=== PATIENT | female | born 1995 | race African-American/Black ===

== ENCOUNTER 2018-09-06 17:01 | Inpatient (IN) ==
[2018-09-06] MEDS ORDERED: PANTOPRAZOLE 40 MG VIAL IV STA (18:16)
[2018-09-06] MEDS ORDERED: ALUM/MAG/SIMETH/LIDO VISC 1:1 30 ML BOTTLE PO STA (18:16)
[2018-09-06] MEDS ORDERED: ONDANSETRON 4 MG/2 ML VIAL IV STA (18:16)
[2018-09-06] MEDS ORDERED: KETOROLAC 30 MG/1 ML VIAL IV STA (18:16)
[2018-09-06 19:11] LABS: Basophils % 0.3 % (0.0-0.8); Eosinophils # 0.1 10*3/uL (0.0-0.87); Eosinophils % 0.7 % (0.00-10.9); Hematocrit 40.1 VOL% (35.7-47.0); Hemoglobin 13.5 GM/DL (12.0-16.0); Immature Granulocytes % 0.4 %; Immature Granulocytes Absolute 0.03 #; Lymphocytes # 1.3 10*3/uL (1.4-4.0); Lymphocytes % 17.2 % (21.3-54.2); Mean Corpuscular HGB Conc 33.7 GM/DL (32-36); Mean Corpuscular Hemoglobin 32 PG (27-34); Mean Corpuscular Volume 95.2 FL (87-102); Monocytes # 0.6 10*3/uL (0.11-0.8); Monocytes % 7.3 % (1.7-12.7); Neutrophils # 5.6 10*3/uL (1.4-7.4); Neutrophils % 74.1 % (38.7-73.9); Platelet Count 217 T/CUMM (130-400); Red Blood Count 4.21 MC/CUMM (3.8-5.5); Red Cell Distribution Width 12.3 % (9.3-17.3); White Blood Count 7.6 T/CUMM (4-12)
[2018-09-06 19:36] LABS: Lactic Acid 0.9 MMOL/L (0.4-2.0)
[2018-09-06 19:37] LABS: Albumin 3.8 G/DL (3.4-5.0); Bilirubin,Total 4.1 MG/DL (0.2-1.0); Calcium 8.9 MG/DL (8.5-10.1); Osmolality,Calculated 273.5 MOS/KG (273-304); Potassium 3.5 MMOL/L (3.5-5.1); Total Protein 8.5 G/DL (6.4-8.3)
[2018-09-06 20:09] LABS: Apearance,Urine CLEAR (Clear); Bilirubin,Urine Negative (Negative); Blood, Urine Negative (Negative); Glucose,Urine (UA) Negative (Negative); Ketones,Urine 5 mg/dL (Negative); Mucus,Urine Occasional /LPF (Occasional); Nitrite,Urine Negative (Negative); Protein,Urine Negative; RBC,Urine 1 /HPF (0-4); Squamous Epithelial Cell,Urine Occasional /HPF (0-10); Urine Color Amber (Yellow); Urine Specific Gravity 1.009 (1.001-1.035)
[2018-09-06] MEDS ORDERED: KETOROLAC 15 MG/1 ML VIAL IV PRN (21:04)
[2018-09-06] MEDS ORDERED: BISACODYL 5 MG TABLET PO PRN (21:04)
[2018-09-06] MEDS ORDERED: ALUMINUM/MAGNES/SIMETH MAX STR 30 ML UDCUP PO PRN (21:04)
[2018-09-06] MEDS ORDERED: IBUPROFEN 400 MG TABLET PO PRN (21:04)
[2018-09-06] MEDS: PIPERACILLIN/TAZOBACTAM 3,375 MG in SODIUM CHLORIDE 0.9% 100 ML IV SCH (21:46)
[2018-09-06 22:27] LABS: Hepatitis A Ab IgM Quant 0.13 Index; Hepatitis A Ab IgM Result Negative (Negative); Hepatitis B Core IgM Quant < 0.05 Index; Hepatitis B Core IgM Result Negative (Negative); Hepatitis B Surface Ag Quant < 0.10 Index; Hepatitis B Surface Ag Result Negative (Negative); Hepatitis C Virus Ab Quant 0.14 Index; Hepatitis C Virus Ab Result Negative (Negative)
[2018-09-06] MEDS: LACTATED RINGERS 1,000 ML IV SCH (22:29)
[2018-09-07 05:03] LABS: Basophils % 0.2 % (0.0-0.8); Eosinophils # 0.1 10*3/uL (0.0-0.87); Eosinophils % 1.4 % (0.00-10.9); Hematocrit 38.1 VOL% (35.7-47.0); Hemoglobin 12.6 GM/DL (12.0-16.0); Immature Granulocytes % 0.2 %; Immature Granulocytes Absolute 0.01 #; Lymphocytes # 1.3 10*3/uL (1.4-4.0); Lymphocytes % 29.8 % (21.3-54.2); Mean Corpuscular HGB Conc 33.1 GM/DL (32-36); Mean Corpuscular Hemoglobin 32 PG (27-34); Mean Corpuscular Volume 96.7 FL (87-102); Mean Platelet Volume 11.6 FL (9.6-12.0); Monocytes # 0.6 10*3/uL (0.11-0.8); Monocytes % 12.4 % (1.7-12.7); Neutrophils # 2.5 10*3/uL (1.4-7.4); Platelet Count 184 T/CUMM (130-400); Red Blood Count 3.94 MC/CUMM (3.8-5.5); Red Cell Distribution Width 12.5 % (9.3-17.3); White Blood Count 4.4 T/CUMM (4-12)
[2018-09-07 05:40] LABS: Bilirubin,Total 3.9 MG/DL (0.2-1.0); Calcium 8.1 MG/DL (8.5-10.1); Osmolality,Calculated 276.4 MOS/KG (273-304); Potassium 3.3 MMOL/L (3.5-5.1); Total Protein 7.3 G/DL (6.4-8.3)
[2018-09-07] MEDS: PIPERACILLIN/TAZOBACTAM 3,375 MG in SODIUM CHLORIDE 0.9% 100 ML IV SCH ×3 (06:11→21:33)
[2018-09-07] MEDS: LACTATED RINGERS 1,000 ML IV SCH ×3 (06:31→19:00)
[2018-09-07] MEDS: DOCUSATE SODIUM 100 MG CAPSULE PO SCH ×2 (14:45→21:33)
[2018-09-07] MEDS: PANTOPRAZOLE 40 MG TABLET PO SCH (14:45)
[2018-09-07] MEDS: ONDANSETRON 4 MG/2 ML VIAL IV PRN (16:17)
[2018-09-08] MEDS: LACTATED RINGERS 1,000 ML IV SCH ×3 (06:16→21:57)
[2018-09-08] MEDS: PIPERACILLIN/TAZOBACTAM 3,375 MG in SODIUM CHLORIDE 0.9% 100 ML IV SCH ×3 (06:17→21:57)
[2018-09-08 07:11] LABS: Basophils % 0.4 % (0.0-0.8); Eosinophils # 0.1 10*3/uL (0.0-0.87); Eosinophils % 1.7 % (0.00-10.9); Hematocrit 37.9 VOL% (35.7-47.0); Hemoglobin 12.2 GM/DL (12.0-16.0); Immature Granulocytes % 0.2 %; Immature Granulocytes Absolute 0.01 #; Lymphocytes # 1.7 10*3/uL (1.4-4.0); Lymphocytes % 37.8 % (21.3-54.2); Mean Corpuscular HGB Conc 32.2 GM/DL (32-36); Mean Corpuscular Hemoglobin 31 PG (27-34); Mean Corpuscular Volume 97.7 FL (87-102); Mean Platelet Volume 11.8 FL (9.6-12.0); Monocytes # 0.5 10*3/uL (0.11-0.8); Monocytes % 10.2 % (1.7-12.7); Neutrophils # 2.3 10*3/uL (1.4-7.4); Neutrophils % 49.7 % (38.7-73.9); PT Patient Result 10.8 SECS; Platelet Count 191 T/CUMM (130-400); Red Blood Count 3.88 MC/CUMM (3.8-5.5); Red Cell Distribution Width 12.4 % (9.3-17.3); White Blood Count 4.6 T/CUMM (4-12)
[2018-09-08] MEDS ORDERED: ROCURONIUM 100 MG/10 ML VIAL IV ONE (09:00)
[2018-09-08] MEDS ORDERED: LIDOCAINE 100 MG/5 ML SYRINGE ONE (09:00)
[2018-09-08] MEDS ORDERED: GLYCOPYRROLATE 0.4 MG/2 ML VIAL ONE (09:00)
[2018-09-08] MEDS ORDERED: NEOSTIGMINE 10 MG/10 ML VIAL ONE ×2 (09:00→13:34)
[2018-09-08] MEDS ORDERED: SUCCINYLCHOLINE 200 MG/10 ML VIAL ONE (09:00)
[2018-09-08] MEDS ORDERED: ONDANSETRON 4 MG/2 ML VIAL ONE ×2 (09:00→12:17)
[2018-09-08] MEDS: DOCUSATE SODIUM 100 MG CAPSULE PO SCH ×2 (09:00→21:58)
[2018-09-08] MEDS ORDERED: PROPOFOL 200 MG/20 ML VIAL IV ONE (09:00)
[2018-09-08] MEDS ORDERED: fentaNYL 100 MCG/2 ML VIAL ONE (11:07)
[2018-09-08] MEDS ORDERED: INDOMETHACIN SUPP 50 MG SUPP RECTAL ONE (11:19)
[2018-09-08] MEDS: ONDANSETRON 4 MG/2 ML VIAL IV PRN ×2 (12:18→19:27)
[2018-09-08] MEDS ORDERED: SEVOFLURANE 1 UNIT/15 MINUTE INH ONE (13:34)
[2018-09-08 14:46] LABS: Albumin 3.2 G/DL (3.4-5.0); Calcium 8.5 MG/DL (8.5-10.1); Osmolality,Calculated 271.7 MOS/KG (273-304); Potassium 3.5 MMOL/L (3.5-5.1); Total Protein 7.8 G/DL (6.4-8.3)
[2018-09-08] MEDS: PANTOPRAZOLE 40 MG TABLET PO SCH (16:12)
[2018-09-09] MEDS: PIPERACILLIN/TAZOBACTAM 3,375 MG in SODIUM CHLORIDE 0.9% 100 ML IV SCH ×3 (05:37→23:30)
[2018-09-09 07:42] LABS: Bilirubin,Total 0.9 MG/DL (0.2-1.0); Calcium 8.8 MG/DL (8.5-10.1); Osmolality,Calculated 278.1 MOS/KG (273-304); Total Protein 7.3 G/DL (6.4-8.3)
[2018-09-09] MEDS: DOCUSATE SODIUM 100 MG CAPSULE PO SCH ×2 (09:00→21:30)
[2018-09-09] MEDS: PANTOPRAZOLE 40 MG TABLET PO SCH (09:00)
[2018-09-09] MEDS: ENOXAPARIN 40 MG/0.4 ML SYRINGE SUBCUT SCH (12:00)
[2018-09-09] MEDS ORDERED: LIDOCAINE 1%/EPI INJ 20 ML VIAL ONE (12:23)
[2018-09-09] MEDS ORDERED: TISSUE ADHESIVE 1 EACH APPLICATOR TOP ONE (12:23)
[2018-09-09] MEDS ORDERED: BUPIVACAINE MPF 0.25% /EPI 30 ML VIAL ONE (12:23)
[2018-09-09] MEDS ORDERED: SCOPOLAMINE 1.5 MG PATCH TRANSDERM ONE ×2 (13:03→13:09)
[2018-09-09] MEDS ORDERED: MIDAZOLAM 2 MG/2 ML VIAL ONE (14:05)
[2018-09-09] MEDS ORDERED: fentaNYL 100 MCG/2 ML VIAL ONE (14:06)
[2018-09-09] MEDS ORDERED: DEXAMETHASONE 10 MG/1 ML VIAL ONE (14:22)
[2018-09-09] MEDS ORDERED: PROPOFOL 200 MG/20 ML VIAL IV ONE (14:22)
[2018-09-09] MEDS ORDERED: SEVOFLURANE 1 UNIT/15 MINUTE INH ONE (14:22)
[2018-09-09] MEDS ORDERED: ONDANSETRON 4 MG/2 ML VIAL ONE ×2 (14:23→14:27)
[2018-09-09] MEDS ORDERED: ROCURONIUM 100 MG/10 ML VIAL IV ONE (14:23)
[2018-09-09] MEDS ORDERED: GLYCOPYRROLATE 0.4 MG/2 ML VIAL ONE (14:23)
[2018-09-09] MEDS ORDERED: NEOSTIGMINE 10 MG/10 ML VIAL ONE (14:23)
[2018-09-09] MEDS ORDERED: HYDROmorphone 2 MG/1 ML VIAL ONE (14:27)
[2018-09-09] MEDS: HYDROmorphone 2 MG/1 ML VIAL IV PRN ×2 (14:30→14:40)
[2018-09-09] MEDS ORDERED: ONDANSETRON 4 MG/2 ML VIAL IV PRN (14:43)
[2018-09-09] MEDS: ONDANSETRON 4 MG/2 ML VIAL IV PRN (16:40)
[2018-09-09] MEDS: MORPHINE 4 MG/1 ML VIAL IV PRN ×2 (19:19→23:47)
[2018-09-09] MEDS: LACTATED RINGERS 1,000 ML IV SCH (21:28)
[2018-09-10] MEDS: LACTATED RINGERS 1,000 ML IV SCH ×3 (01:48→15:01)
[2018-09-10] MEDS: PIPERACILLIN/TAZOBACTAM 3,375 MG in SODIUM CHLORIDE 0.9% 100 ML IV SCH ×2 (06:21→15:02)
[2018-09-10] MEDS: MORPHINE 4 MG/1 ML VIAL IV PRN (06:27)
[2018-09-10] MEDS: DOCUSATE SODIUM 100 MG CAPSULE PO SCH (09:18)
[2018-09-10] MEDS: PANTOPRAZOLE 40 MG TABLET PO SCH (09:18)
[2018-09-10 10:03] LABS: Albumin 3.4 G/DL (3.4-5.0); Bilirubin,Direct 0.44 MG/DL (0.0-0.20); Bilirubin,Indirect 0.3 MG/DL (0.0-1.0); Bilirubin,Total 0.7 MG/DL (0.2-1.0); Total Protein 7.5 G/DL (6.4-8.3)
[2018-09-10 12:40] VITALS: BP 108/60
[2018-09-10] MEDS: ENOXAPARIN 40 MG/0.4 ML SYRINGE SUBCUT SCH (15:01)
== END 2018-09-10 14:00 | disposition home or self-care (01) | DRG 419 ==
LOC: N.ED 17:01 → N.EDINP 21:04 → N.3E 21:39
PROVIDERS: ADMIT Surgery; ATTEND Surgery
PROC: LAPCHOL (2018-09-09 12:05)

== ENCOUNTER 2019-11-25 17:59 | Inpatient (IN) ==
[2019-11-25] MEDS ORDERED: LACTATED RINGERS 1,000 ML IV SCH (18:30)
[2019-11-25 18:56] LABS: Basophils % 0.2 % (0.0-0.8); Eosinophils # 0.1 10*3/uL (0.0-0.87); Hematocrit 33.3 VOL% (35.7-47.0); Hemoglobin 11.2 GM/DL (12.0-16.0); Immature Granulocytes % 0.5 %; Immature Granulocytes Absolute 0.05 #; Lymphocytes # 2.2 10*3/uL (1.4-4.0); Lymphocytes % 22.2 % (21.3-54.2); Mean Corpuscular HGB Conc 33.6 GM/DL (32-36); Mean Corpuscular Volume 91.2 FL (87-102); Mean Platelet Volume 12.3 FL (9.6-12.0); Monocytes % 7.6 % (1.7-12.7); Neutrophils % 68.5 % (38.7-73.9); Platelet Count 186 T/CUMM (130-400); Red Blood Count 3.65 MC/CUMM (3.8-5.5); Red Cell Distribution Width 13.5 % (9.3-17.3); White Blood Count 9.8 T/CUMM (4-12)
[2019-11-25 19:03] LABS: INR 0.9; PT Patient Result 9.3 SECS (9.6-12.2); Partial Thromboplastin Time 27.8 SECS (20.8-36.0)
[2019-11-25 19:26] LABS: Alanine Aminotransferase 31 U/L (13-56); Albumin 2.5 G/DL (3.4-5.0); Alkaline Phosphatase 187 U/L (45-117); Aspartate Amino Transferase 29 U/L (0-37); Bilirubin,Total < 0.39 MG/DL (0.2-1.0); Blood Urea Nitrogen 10 MG/DL (7-18); Calcium 9.1 MG/DL (8.5-10.1); Estimated Glom Filtration Rate 139 ML/MIN; Glucose 79 MG/DL (74-106); Osmolality,Calculated 270.8 MOS/KG (273-304); Total Protein 7.5 G/DL (6.4-8.3); Uric Acid 5.5 MG/DL (2.6-6.0)
[2019-11-25] MEDS ORDERED: PENICILLIN G POTASSIUM INJ 6,000,000 UNIT in SODIUM CHLORIDE 0.9% 100 ML IV ONE (20:00)
[2019-11-26] MEDS: PENICILLIN G POTASSIUM INJ 3,000,000 UNIT in SODIUM CHLORIDE 0.9% 100 ML IV SCH ×4 (00:15→12:22)
[2019-11-26] MEDS ORDERED: OXYTOCIN/LR 20 UNIT/1,000 ML BAG IV SCH (12:00)
[2019-11-26] MEDS ORDERED: ceFAZolin 3,000 MG in SYRINGE 15 EACH IV ONE ×2 (14:59→15:30)
[2019-11-26] MEDS ORDERED: CITRIC ACID/SODIUM CITRATE 30 ML UDCUP PO ONE (14:59)
[2019-11-26] MEDS ORDERED: FAMOTIDINE 20 MG/2 ML VIAL IV ONE (14:59)
[2019-11-26] MEDS ORDERED: LACTATED RINGERS 1,000 ML IV SCH (15:00)
[2019-11-26] MEDS ORDERED: OXYTOCIN/LR 20 UNIT/1,000 ML BAG IV ONE ×2 (15:18→19:00)
[2019-11-26] MEDS ORDERED: TRANEXAMIC ACID 1,000 MG/10 ML VIAL ONE (15:18)
[2019-11-26] MEDS ORDERED: miSOPROStoL 200 MCG TABLET ONE (15:18)
[2019-11-26] MEDS ORDERED: METHYLERGONOVINE 0.2 MG/1 ML AMP ONE (15:18)
[2019-11-26] MEDS ORDERED: CARBOPROST TROMETHAMINE 250 MCG/ML AMP IM ONE (15:19)
[2019-11-26] MEDS ORDERED: ROPIVACAINE 0.5% 30 ML VIAL ONE (15:23)
[2019-11-26] MEDS: ONDANSETRON 4 MG/2 ML VIAL IV PRN ×2 (15:32→21:00)
[2019-11-26] MEDS ORDERED: OXYTOCIN 10 UNIT/ML VIAL ONE (16:37)
[2019-11-26 17:14] LABS: Apearance,Urine CLEAR (Clear); Bilirubin,Urine Negative (Negative); Blood, Urine Negative (Negative); Glucose,Urine (UA) Negative (Negative); Ketones,Urine 80 mg/dL (Negative); Mucus,Urine Occasional /LPF (Occasional); Nitrite,Urine Negative (Negative); Protein,Urine 100 MG/DL; RBC,Urine 1 /HPF (0-4); Squamous Epithelial Cell,Urine Occasional /HPF (0-10); Urine Color Yellow (Yellow); Urine Specific Gravity 1.036 (1.001-1.035); Urine Urobilinogen < 2.0 EU/DL (0.2-1.0); WBC,Urine 1 /HPF (0-6)
[2019-11-26] MEDS ORDERED: fentaNYL 100 MCG/2 ML VIAL ONE (17:25)
[2019-11-26] MEDS ORDERED: PHENYLEPHRINE 1 MG/10 ML SYRINGE IV ONE (17:25)
[2019-11-26] MEDS ORDERED: MIDAZOLAM 2 MG/2 ML VIAL ONE (17:26)
[2019-11-26] MEDS ORDERED: BUPIVACAINE SPINAL 0.75% 2 ML AMP SPINAL ONE (17:26)
[2019-11-26] MEDS ORDERED: MORPHINE 10 MG/10 ML VIAL ONE (17:26)
[2019-11-26] MEDS: KETOROLAC 30 MG/1 ML VIAL IV SCH ×2 (19:45→20:11)
[2019-11-26] MEDS ORDERED: RHO(D) IMMUNE GLOBULIN 300 MCG SYRINGE IM ONE (20:26)
[2019-11-26] MEDS ORDERED: ACETAMINOPHEN 325 MG TABLET PO PRN (20:26)
[2019-11-26] MEDS ORDERED: ONDANSETRON 4 MG/2 ML VIAL IV PRN (20:26)
[2019-11-26] MEDS: DOCUSATE SODIUM 100 MG CAPSULE PO SCH (21:13)
[2019-11-27] MEDS: KETOROLAC 30 MG/1 ML VIAL IV SCH ×3 (01:24→14:10)
[2019-11-27 05:54] LABS: Basophils % 0.2 % (0.0-0.8); Eosinophils % 0.2 % (0.00-10.9); Hematocrit 27.9 VOL% (35.7-47.0); Hemoglobin 9.2 GM/DL (12.0-16.0); Immature Granulocytes % 0.7 %; Immature Granulocytes Absolute 0.08 #; Lymphocytes # 1.3 10*3/uL (1.4-4.0); Lymphocytes % 10.8 % (21.3-54.2); Mean Corpuscular Volume 92.4 FL (87-102); Mean Platelet Volume 13.1 FL (9.6-12.0); Monocytes % 6.4 % (1.7-12.7); Neutrophils % 81.7 % (38.7-73.9); Platelet Count 165 T/CUMM (130-400); Red Blood Count 3.02 MC/CUMM (3.8-5.5); Red Cell Distribution Width 13.8 % (9.3-17.3); White Blood Count 12.1 T/CUMM (4-12)
[2019-11-27] MEDS: MAGNESIUM HYDROXIDE SUSP 30 ML UDCUP PO PRN (08:20)
[2019-11-27] MEDS: DOCUSATE SODIUM 100 MG CAPSULE PO SCH ×2 (08:21→20:39)
[2019-11-27] MEDS: SIMETHICONE CHEW 80 MG TABLET PO PRN (08:21)
[2019-11-27] MEDS: MULTIVITAMIN (PRENATAL) TABLET PO SCH (08:21)
[2019-11-27] MEDS: IBUPROFEN 800 MG TABLET PO SCH (18:05)
[2019-11-28] MEDS: IBUPROFEN 800 MG TABLET PO SCH ×3 (01:26→18:32)
[2019-11-28 07:15] LABS: Basophils % 0.3 % (0.0-0.8); Eosinophils # 0.1 10*3/uL (0.0-0.87); Eosinophils % 0.6 % (0.00-10.9); Hematocrit 26.4 VOL% (35.7-47.0); Hemoglobin 8.7 GM/DL (12.0-16.0); Immature Granulocytes % 0.9 %; Lymphocytes # 2.2 10*3/uL (1.4-4.0); Lymphocytes % 19.1 % (21.3-54.2); Mean Platelet Volume 11.7 FL (9.6-12.0); Monocytes % 6.5 % (1.7-12.7); NRBC # 0.02 10*3/uL; Neutrophils % 72.6 % (38.7-73.9); Platelet Count 194 T/CUMM (130-400); Red Blood Count 2.84 MC/CUMM (3.8-5.5); Red Cell Distribution Width 13.9 % (9.3-17.3); White Blood Count 11.3 T/CUMM (4-12)
[2019-11-28 07:46] LABS: Alanine Aminotransferase 28 U/L (13-56); Albumin 2.1 G/DL (3.4-5.0); Alkaline Phosphatase 134 U/L (45-117); Aspartate Amino Transferase 36 U/L (0-37); Bilirubin,Total < 0.39 MG/DL (0.2-1.0); Blood Urea Nitrogen 7 MG/DL (7-18); Calcium 8.3 MG/DL (8.5-10.1); Estimated Glom Filtration Rate 139 ML/MIN; Glucose 94 MG/DL (74-106); Osmolality,Calculated 280.1 MOS/KG (273-304); Total Protein 6.5 G/DL (6.4-8.3)
[2019-11-28] MEDS: DOCUSATE SODIUM 100 MG CAPSULE PO SCH ×2 (09:57→19:44)
[2019-11-28] MEDS: MULTIVITAMIN (PRENATAL) TABLET PO SCH (09:57)
[2019-11-28] MEDS: MAGNESIUM HYDROXIDE SUSP 30 ML UDCUP PO PRN ×2 (09:58→19:44)
[2019-11-28] MEDS: SIMETHICONE CHEW 80 MG TABLET PO PRN (19:44)
[2019-11-29] MEDS: DOCUSATE SODIUM 100 MG CAPSULE PO SCH ×2 (00:24→09:57)
[2019-11-29] MEDS: IBUPROFEN 800 MG TABLET PO SCH ×2 (02:29→09:57)
[2019-11-29 07:35] VITALS: BP 134/71
[2019-11-29] MEDS: MAGNESIUM HYDROXIDE SUSP 30 ML UDCUP PO PRN (09:57)
[2019-11-29] MEDS: MULTIVITAMIN (PRENATAL) TABLET PO SCH (09:57)
== END 2019-11-29 13:00 | disposition home or self-care (01) | DRG 540 ==
LOC: N.LD 17:59 → N.OB 11-26 20:45
PROVIDERS: ADMIT Obstetrics & Gynecology; ATTEND Obstetrics & Gynecology
PROC: LDCSECT (ICD-10-PCS; 2019-11-26 16:00)